=== PATIENT | male | born 1965 | race Two or more races ===

== ENCOUNTER 2025-05-11 12:11 | Outpatient (RCR) | payer MEDICARE, MEDICAID, SELFPAY ==
--- NOTE | 2025-05-11 12:30 | XR_ITS ---
Examination: PREETHI, hepatobiliary radioisotope scan Gallbladder ejection fraction study. Date and time of exam: May 11, 2025 1233 hours INDICATIONS: Abdominal pain this week Technique: 5.8 mCi of 99M Hepatolite administered. Serial imaging then obtained from immediate through 60 minutes. 1.2 mcg selective catheter Kinevac administered for gallbladder ejection fraction study. Findings: Radioisotope activity within the liver is reasonably homogenous. Gallbladder, common bile duct small bowel activity noted Impression: Gallbladder activity Gallbladder ejection fraction 35%, normal greater than 35%
== END 2025-05-16 23:59 | disposition home or self-care (01) ==
LOC: SNUC 12:11
PROVIDERS: PCP Physician Assistant; Referring Provider Physician Assistant; Visit Provider Physician Assistant
DX: R93.2 Abnormal findings on diagnostic imaging of liver and biliary tract (principal)
CPT/HCPCS: 78227; A9537; J2805